=== PATIENT | male | born 1985 | race Caucasian/White ===

== ENCOUNTER 2019-12-01 10:59 | Emergency (ER) | payer BC, SELFPAY ==
[2019-12-01 11:00] VITALS: BP 163/109; PULSE 73; RESP 18; TEMP 36.8; O2SAT 98; BMI 36.2
--- NOTE | 2019-12-01 11:07 | NURSING ---
NO OLD EKGS
[2019-12-01 11:33] VITALS: BP 146/73; PULSE 67; RESP 17; O2SAT 97
--- NOTE | 2019-12-01 11:43 | CT_ITS ---
STUDY: CT BRAIN WITHOUT CONTRAST REASON FOR EXAM: Male, 34 years old. YUSUF/DIZZY/FATIGUE//WEAKNESS RADIATION DOSAGE (If Supplied By Facility): CTDIvol = ( 60.81 ) mGy, DLP = ( 1067.08 ) mGycm TECHNIQUE: Transaxial CT imaging of the brain was performed without administration of intravenous contrast material. Individualized dose optimization techniques were used for this CT. COMPARISON: No relevant priors. FINDINGS: Normal soft tissue structures. Normal calvarium. Normal size ventricles and extra-axial spaces for the patient''s age. Normal white matter tracts of the cerebral hemispheres. Normal basal ganglia and thalami. Normal brainstem. Normal cerebellum. There is no intracranial hemorrhage. There are no findings of an acute ischemic infarction. Normal visualized paranasal sinuses. CT/Brain/Head without Contrast IMPRESSION: Normal unenhanced CT scan of the brain. Electronically Signed: Shree Lacey, at 12:28 EDT , Service support ,
--- NOTE | 2019-12-01 11:44 | EKG12_ITS ---
Test Reason : Blood Pressure : / mmHG Vent. Rate : 060 BPM Atrial Rate : 060 BPM P-R Int : 146 ms QRS Dur : 082 ms QT Int : 416 ms P-R-T Axes : 048 041 032 degrees QTc Int : 416 ms Normal sinus rhythm Normal ECG Confirmed by YANIV FORRESTER, CIRO ([id number]), video effects editor JESSIKA ROGERS ([id number]) on 12/06/2019 11:04:51 AM Referred By: VERONICA Confirmed By:CIRO PURVIS MD
[2019-12-01] MEDS: 0.9% Normal Saline 1,000 ML 1000 ML IV (12:01)
[2019-12-01 12:05] LABS: Absolute Lymphocyte Count 1.54 X10^3/uL (0.83-4.51); Absolute Neutrophil Count 3.7 X10^3/uL (2.0-7.7); Basophil# 0.02 X10^3/uL; Basophil% 0.4 % (0-1); Eosinophil# 0.07 X10^3/uL; Eosinophils% 1.2 % (0-5); Hematocrit 46.3 % (40-54); Hemoglobin 15.8 g/dL (13.0-16.5); Lymphocyte # 1.54 X10^3/ul (4.0); Mean Corp Hgb Conc 34.1 g/dL (32-36); Mean Corpuscular Hgb 31.2 pg (27.0-32.0); Mean Corpuscular Volume 91.3 fL (80-94); Mean Platelet Vol. 10.3 fl (6.2-12.0); Monocyte# 0.41 X10^3/uL; Monocyte% 7.2 % (0-10); NRBC Flagged by Analyzer 0 % (0-5); Neutrophil # 3.65 X10^3/uL (2.7-7.7); Neutrophil % 63.8 % (47-70); Platelet Count 255 K/mm3 (150-450); RBC Distribution Width CV 11.9 % (11.6-14.6); RBC Distribution Width SD 39.4 fl (35.1-43.9); Red Blood Count 5.07 M/mm3 (4.6-6.2); White Blood Count 5.7 K/mm3 (4.4-11.0)
[2019-12-01 12:13] LABS: ALB/GLOB Ratio 1.1 RATIO (0.9-2.4); AST(SGOT) 32 U/L (15-37); Alanine Aminotransfer ALT/SGPT 59 U/L (16-61); Albumin, Serum 4.1 g/dL (3.2-5.0); Alkaline Phosphatase 120 U/L (45-117); Anion Gap 5 (5-15); BUN 10 mg/dL (7-18); BUN/Creat Ratio 10.2 RATIO (10-20); Calcium,Total 8.7 mg/dL (8.5-10.1); Chloride 103 mmol/L (98-107); Creatinine, Serum 0.98 mg/dL (0.70-1.30); EST Glomerular Filtration Rate 92 mL/min (>60); Est Glom Filt Rate - Afr Amer 111 mL/min (>60); Estimated Creatinine Clearance 110.99 ml/min; Globulin 3.9 g/dL (2.2-4.2); Glucose 110 mg/dL (74-106); Potassium 3.8 mmol/L (3.5-5.1); Sodium Level 137 mmol/L (136-145)
--- NOTE | 2019-12-01 12:42 | ED.VISSUMM ---
- ER Visit Summary Date of Service: 12/01/19 Chief Complaint: Do not feel well. History of Present Illness: The patient is a [address] Clemente. He reports that for the past 3 days he has not felt well. He gets lightheaded when he stands. He has not passed out. Is relieved with laying down. He denies any vertigo. However, he does report that he feels off balance. Patient reports he had similar symptoms approximately 8 years ago with anxiety. He does complain of a heaviness in his chest that is been constant over the past 3 days. Is 4-10 at worst and 2 out of 10 currently. Is decreased with calming down. And increased with standing up. Also reports that he has a headache that is 3 out of 10 in severity. He denies any other complaints. Physical Examination: Vitals: Stable. Afebrile. General: Well-nourished and well-developed. Head: Normocephalic atraumatic. Neck: Supple, no lymphadenopathy. No JVD. Nontender. Cardiovascular: Regular rate and rhythm. No murmurs. Respiratory: No respiratory distress. Clear to auscultation bilaterally. Abdominal: Soft, nontender, nondistended, normal bowel sounds. No guarding, rebound, or peritoneal signs. Back: Nontender. Extremities: Nontender, no edema. Skin: Normal color, no rash. Neurologic: Alert and oriented ?3. Cranial nerves II through XII are intact. Normal strength and sensation. Psych: Normal affect. Test Results: EKG is sinus at [address] changes. Troponin is negative. LFTs are marked for an alk phos of 120. Chem-7 shows a glucose 110. CBC is normal. Clinical Impression(s) from Imaging Studies Brain CT 12/01/19 11:43 IMPRESSION: Normal unenhanced CT scan of the brain. Electronically Signed: Shree Lacey, at 12:28 EDT , Service support , Emergency Department Course and Treatment: Patient was given a liter of normal saline. He is resting comfortably. He is able to ambulate without difficulty. Treatment Plan: Patient be discharged instructions to push fluids. Follow-up his primary care physician in 3 to 5 days if not improving. Return to the emergency department for any worsening symptoms. Disposition: To home in improved and stable condition. Impression: 1. Atypical chest pain. 2. Lightheadedness, uncertain cause. This note was generated with [employer] dictation software. It may contain incorrect words, spelling, and punctuation that were not noted in review of the chart prior to signing ED Disposition - Plan for ED Patient: Disposition: Home or Assisted Living Instructions: ED Near-Fainting Uncertain Cause Referrals: AKI CLEMENTE [Other] - 1-2 Days if not improving
--- NOTE | 2019-12-01 13:21 | NURSING ---
NO OLD EKGS
[2019-12-01 14:00] VITALS: BP 114/91; PULSE 61; RESP 23; O2SAT 99
== END 2019-12-01 14:02 | disposition home or self-care (01) ==
LOC: ED 12:30
PROVIDERS: Emergency Provider Emergency Medicine
DX: R07.89 Other chest pain (principal); R42 Dizziness and giddiness; R51 Headache; I10 Essential (primary) hypertension; E78.00 Pure hypercholesterolemia, unspecified; G47.33 Obstructive sleep apnea (adult) (pediatric); F41.9 Anxiety disorder, unspecified; F17.220 Nicotine dependence, chewing tobacco, uncomplicated
CPT/HCPCS: 70450; 80053; 84484; 85025; 93005; 96360; 99284; J7030; A4216

== ENCOUNTER → 2020-03-22 16:54 | Outpatient (CLI) | payer BC, SELFPAY ==
[2020-03-22 13:11] VITALS: BMI 34.9
[2020-03-22 17:50] LABS: AST(SGOT) 28 U/L (15-37); Alanine Aminotransfer ALT/SGPT 48 U/L (16-61); Albumin, Serum 4.3 g/dL (3.2-5.0); Alkaline Phosphatase 125 U/L (45-117); Bilirubin, Direct 0.22 mg/dL (0.00-0.30); Cholesterol 160 mg/dL (200); Globulin 3.6 g/dL (2.2-4.2); High Density Lipoprotein 46 mg/dL; Protein, Total 7.9 g/dL (6.4-8.2); Thyroid Stim Hormone (TSH) 1.34 uIU/mL (0.358-3.74); Triglycerides 212 mg/dL; Very Low Density Lipoprotein 42 mg/dL (5-40)
== END ==
PROVIDERS: Referring Provider Internal Medicine Cardiovascular Disease; Visit Provider Internal Medicine Cardiovascular Disease
DX: E78.5 Hyperlipidemia, unspecified (principal); I10 Essential (primary) hypertension
CPT/HCPCS: 36415; 80061; 80076; 84443

== ENCOUNTER → 2020-04-27 13:45 | Outpatient (CLI) | payer BC, SELFPAY ==
[2020-03-22 13:11] VITALS: BMI 34.9
--- NOTE | 2020-04-27 13:51 | ECHOD_ITS ---
Reason For Study: HTN Procedure This was a 2D Doppler, Color Flow transthoracic echocardiogram. Exam performed in department. Left Ventricle Normal LV size. Left ventricular systolic function is normal. The estimated ejection fraction is 60 %. No regional wall motion abnormalities noted. Right Ventricle Normal RV size. Normal systolic function. Atria Normal left atrium. Normal right atrium. Mitral Valve Normal mitral valve. Tricuspid Valve Normal tricuspid valve. Mild (1+) tricuspid valve insufficiency. Pulmonary artery systolic pressure is 22 mmHg. Aortic Valve Normal aortic valve. Trisinus/trileaflet aortic valve. Pulmonic Valve Normal pulmonic valve. Great Vessels Normal aortic root. The pulmonary artery is normal size. Normal inferior vena cava. Pericardium/Pleural No pericardial effusion. MMode/2D Measurements & Calculations LVIDd: 4.9 cm IVSd: 0.99 cm Ao root diam: 3.3 cm LVIDs: 3.3 cm LVPWd: 0.93 cm RVDd: 3.6 cm FS: 33.3 % LAV(MOD-bp): 46.7 ml LVAd ap4: 37.1 cm2 SV(MOD-sp4): 77.6 ml LAV(MOD-bp) Indexed: 20.1 ml/m2 EDV(MOD-sp4): 129.1 ml LAV(MOD-sp2): 47.0 ml EDV(sp4-el): 133.6 ml LAV(MOD-sp4): 43.3 ml LVAs ap4: 20.8 cm2 ESV(MOD-sp4): 51.5 ml ESV(sp4-el): 52.5 ml EF(MOD-sp4): 60.1 % EF(sp4-el): 60.7 % SV(sp4-el): 81.2 ml LA A4 area: 16.2 cm2 LA dimension(2D): 4.3 cm RA A4 area: 10.2 cm2 Time Measurements MV dec time: 0.21 sec Doppler Measurements & Calculations MV E max hussain: 84.2 cm/sec Lat Peak E' Hussain: 15.4 cm/sec Med Peak E' Hussain: 9.6 cm/sec MV A max hussain: 60.5 cm/sec E/E' lat: 5.5 E/E' med: 8.8 MV E/A: 1.4 Ao V2 max: 130.4 cm/sec LV V1 max: 104.6 cm/sec PA V2 max: 120.2 cm/sec Ao max P.8 mmHg LV V1 max P.4 mmHg PI end-d hussain: 107.1 cm/sec TR max hussain: 215.5 cm/sec TR max P.6 mmHg Interpretation Summary Normal LV size. Left ventricular systolic function is normal. The estimated ejection fraction is 60 %. Pulmonary artery systolic pressure is 22 mmHg. Structurally normal valves. Ordering Physician: Sal Yates Referring Physician: Sal Yates Performed By: Sarahi Maxwell, ARDEN, RVT
== END ==
PROVIDERS: Referring Provider Internal Medicine Cardiovascular Disease; Visit Provider Internal Medicine Cardiovascular Disease
DX: I10 Essential (primary) hypertension (principal)
CPT/HCPCS: 93306